=== PATIENT | male | born 1945 | race Caucasian/White ===

== ENCOUNTER 2016-10-26 07:31 | Day surgery (SDC) | END 2016-10-26 07:32 | disposition home or self-care (01) | CPT/HCPCS: 66984; A9270; V2632 ==

== ENCOUNTER 2016-12-21 07:42 | Day surgery (SDC) | payer MEDICARE, OTHER ==
[~2016-12-21 07:42] MED LIST: PHENYLEPHRINE 2.5% OPHTH 2 ML DROPS ONE
[2016-12-21] MEDS ORDERED: PROPARACAINE 0.5% OPHTH DROPS 15 ML OPTH ONE (07:55)
[2016-12-21] MEDS ORDERED: CYCLOPENTOLATE 1% OPHTH DROPS 2 ML OPTH ONE (07:55)
[2016-12-21] MEDS ORDERED: KETOROLAC 0.45% OPHTH DROPS OPTH ONE (07:55)
[2016-12-21] MEDS ORDERED: PHENYLEPHRINE 2.5% OPHTH 2 ML DROPS OPTH ONE (07:55)
[2016-12-21] MEDS ORDERED: LACTATED RINGERS 500 ML IV ONE (08:02)
[2016-12-21] MEDS ORDERED: MIDAZOLAM 2 MG/2 ML VIAL IVP ONE (08:28)
[2016-12-21] MEDS ORDERED: TRIAMCIN/MOXIFLOX/VANCO 1 ML VIAL IO ONE (08:31)
[2016-12-21] MEDS ORDERED: EPINEPHrine 1 MG/ML AMP IVP ONE (08:31)
[2016-12-21] MEDS ORDERED: levoFLOXacin 0.5% OPHTH DROPS 5 ML OPTH ONE (08:31)
[2016-12-21] MEDS ORDERED: BSS/LIDOCAINE/EPINEPHRINE 1 ML SYRINGE IO ONE (08:31)
[2016-12-21] MEDS ORDERED: CHONDR SULF/HYALURONATE SYRINGE IO ONE (08:31)
[2016-12-21] MEDS ORDERED: BRIMONIDINE 0.2% OPHTH DROPS 5 ML OPTH ONE (08:31)
[2016-12-21] MEDS ORDERED: LACTATED RINGERS 300 ML IV ONE (08:58)
== END 2016-12-21 07:43 | disposition home or self-care (01) ==
PROC: 08RK3JZ Replacement of Left Lens with Synthetic Substitute, Percutaneous Approach (ICD-10-PCS; principal; 2016-12-21 08:50)
DX: H25.12 Age-related nuclear cataract, left eye (principal); Z83.3 Family history of diabetes mellitus; I10 Essential (primary) hypertension; K21.9 Gastro-esophageal reflux disease without esophagitis; E03.9 Hypothyroidism, unspecified; Z95.1 Presence of aortocoronary bypass graft; Z87.891 Personal history of nicotine dependence; E78.5 Hyperlipidemia, unspecified
CPT/HCPCS: 66984; A9270; V2632

== ENCOUNTER 2017-02-13 13:02 | Emergency (ER) | payer MEDICARE, OTHER ==
[2017-02-13] MEDS ORDERED: SODIUM BICARBONATE ABBOJECT 50 MEQ/50 ML SYRINGE ONE (13:49)
[2017-02-13] MEDS ORDERED: LIDOCAINE 1%-EPI 1:100000 20 ML MDV ONE (13:49)
== END 2017-02-13 14:59 | disposition home or self-care (01) ==
DX: S81.012A Laceration without foreign body, left knee, initial encounter (principal); W29.3XXA Contact with powered garden and outdoor hand tools and machinery, initial encounter; I10 Essential (primary) hypertension; E78.00 Pure hypercholesterolemia, unspecified; E03.9 Hypothyroidism, unspecified; J44.9 Chronic obstructive pulmonary disease, unspecified; I25.10 Atherosclerotic heart disease of native coronary artery without angina pectoris; Z95.1 Presence of aortocoronary bypass graft; Z79.82 Long term (current) use of aspirin

== ENCOUNTER 2018-05-16 14:47 | Outpatient (CLI) | payer MEDICARE, OTHER ==
[2018-05-16 15:20] LABS: ALBUMIN 3.8 g/dL (3.2-5.5); ALBUMIN/GLOBULIN RATIO 1.2 (1.0-2.2); BILIRUBIN,TOTAL 0.7 mg/dL (0.2-1.0); CALCIUM 9.2 mg/dL (8.5-10.3); CREATININE 1.4 mg/dL (0.6-1.2); MAGNESIUM 1.9 mg/dL (1.7-2.8); TOTAL PROTEIN 6.9 g/dL (6.7-8.2)
[2018-05-16 15:22] LABS: BASOPHILS # (AUTO) 0.1 10^3/uL (0.0-0.1); BASOPHILS % (AUTO) 1.4 %; EOSINOPHILS # (AUTO) 0.3 10^3/uL (0.0-0.7); EOSINOPHILS % (AUTO) 4.4 %; HGB - HEMOGLOBIN 10.4 g/dL (14.0-18.0); LYMPHOCYTES # (AUTO) 1.6 10^3/uL (1.5-3.5); MEAN CORPUSCULAR HEMOGLOBIN 20.9 pg (27.0-31.0); MEAN CORPUSCULAR HGB CONC 30.4 g/dL (32.0-36.0); MEAN CORPUSCULAR VOLUME 68.7 fL (80.0-94.0); MEAN PLATELET VOLUME 8.5 fL (7.4-11.4); MONOCYTES # (AUTO) 0.5 10^3/uL (0.0-1.0); MONOCYTES % (AUTO) 7.4 %; NEUTROPHILS # (AUTO) 4.2 10^3/uL (1.5-6.6); NEUTROPHILS % (AUTO) 62.8 %; PLT - PLATELET COUNT 275 10^3/uL (130-450); RED BLOOD COUNT 4.97 10^6/uL (4.70-6.10); RED CELL DISTRIBUTION WIDTH 20.4 % (12.0-15.0); WHITE BLOOD COUNT 6.8 x10^3/uL (4.8-10.8)
[2018-05-16 15:50] LABS: PLATELET ESTIMATE, MANUAL NORMAL (130-450,000) (NORMAL); PLATELET MORPHOLOGY NORMAL APPEARANCE (NORMAL)
== END 2018-05-16 14:48 | disposition home or self-care (01) ==
LOC: LAB 14:47
PROVIDERS: ATTEND Internal Medicine Cardiovascular Disease
DX: I49.3 Ventricular premature depolarization (principal); I10 Essential (primary) hypertension
CPT/HCPCS: 36415; 80053; 83735; 84443; 85025

== ENCOUNTER 2019-07-24 09:20 | Outpatient (CLI) | payer MEDICARE, OTHER ==
[2019-07-24 10:06] LABS: ALBUMIN 4.5 g/dL (3.2-5.5); ALBUMIN/GLOBULIN RATIO 1.9 (1.0-2.2); ALKALINE PHOSPHATASE 46 IU/L (42-121); ALT ALANINE AMINOTRANSFERASE 41 IU/L (10-60); AST ASPARTATE AMINOTRANSFERASE 31 IU/L (10-42); BILIRUBIN,TOTAL 0.9 mg/dL (0.2-1.0); BUN - BLOOD UREA NITROGEN 24 mg/dL (6-20); CALCIUM 9.8 mg/dL (8.5-10.3); CARBON DIOXIDE - CO2 31 mmol/L (21-32); CHLORIDE 101 mmol/L (101-111); CHOLESTEROL 136 mg/dL; CREATININE 1.2 mg/dL (0.6-1.2); GFR - MDRD 59 (>89); GLUCOSE 127 mg/dL (70-100); HDL CHOLESTEROL 34 mg/dL; LDL CHOLESTEROL,CALCULATED 66 mg/dL; LDL/HDL RATIO 1.9 (<3.6); SODIUM 142 mmol/L (135-145); TOTAL PROTEIN 6.9 g/dL (6.7-8.2); VLDL CHOLESTEROL 36 mg/dL
== END 2019-07-24 09:21 | disposition home or self-care (01) ==
LOC: LAB 09:20
PROVIDERS: ATTEND Internal Medicine Cardiovascular Disease
DX: E78.00 Pure hypercholesterolemia, unspecified (principal)
CPT/HCPCS: 36415; 80053; 80061; 83721

== ENCOUNTER 2021-02-10 16:29 | Outpatient (CLI) | payer MEDICARE, OTHER | END 2021-02-10 16:30 | disposition home or self-care (01) | LOC: DI 16:29 | PROVIDERS: ATTEND Podiatrist | DX: Z53.9 Procedure and treatment not carried out, unspecified reason (principal) ==

== ENCOUNTER 2021-02-10 16:36 | Outpatient (CLI) | payer MEDICARE, OTHER ==
--- NOTE | 2021-02-10 17:02 | XRAY Report ---
PROCEDURE: Foot 3 View RT INDICATIONS: PAINFUL FIRST MP JOINT, R FOOT TECHNIQUE: 3 views of the foot were acquired. COMPARISON: None. FINDINGS: No fracture. Severe first MTP joint degeneration with [id number] appearance. Mild articular surface collapse of the second metatarsal head raising possibility of age indeterminate [place] infraction. Prominent dorsal osteophyte seen at the first MTP joint on the lateral view Soft tissues: No tibiotalar joint effusion. Achilles tendon appears normal. IMPRESSION: Severe first MTP degenerative joint disease, with prominent dorsal osteophytes raising the possibilit y of hallux rigidus. Reviewed by: Mihai Cannon MD on 02/10/2021 5:00 PM PDT Approved by: Mihai Cannon MD on 02/10/2021 5:00 PM PDT Station ID: [id number]
== END 2021-02-10 16:37 | disposition home or self-care (01) ==
LOC: DI 16:36
PROVIDERS: ATTEND Podiatrist
DX: M19.071 Primary osteoarthritis, right ankle and foot (principal); M25.774 Osteophyte, right foot

== ENCOUNTER 2021-11-23 13:42 | Outpatient (CLI) | payer MEDICARE, OTHER ==
--- NOTE | 2021-11-23 16:17 | XRAY Report ---
PROCEDURE: Chest 2 View X-Ray INDICATIONS: ARDS,COVID 19 TECHNIQUE: 2 view(s) of the chest. COMPARISON: None. FINDINGS: Surgical changes and devices: There is prior left shoulder arthroplasty. Mediastinal wires also seen. Lungs and pleura: No pleural effusions or pneumothorax. Ill-defined airspace opacities are seen in r ight upper and lower lung dao and left mid to lower lung dao. Mediastinum: Mildly tortuous thoracic aorta is seen. Heart size is enlarged. Bones and chest wall: No suspicious bony abnormalities. Soft tissues appear unremarkable. IMPRESSION: Finding is suggestive of multiple bilateral patchy infiltrates likely secondary to: 19 i nfection. Reviewed by: Jarvis Basurto MD on 11/23/2021 4:16 PM PST Approved by: Jarvis Basurto MD on 11/23/2021 4:16 PM PST Station ID: [id number]
== END 2021-11-23 13:43 | disposition home or self-care (01) ==
LOC: DI 13:42
PROVIDERS: ATTEND Nurse Practitioner Family
DX: J80 Acute respiratory distress syndrome (principal); U07.1 COVID-19; R91.8 Other nonspecific abnormal finding of lung field